=== PATIENT | female | born 1975 | race American Indian/Alaskan Native ===

== ENCOUNTER 2018-02-02 20:03 | Emergency (ER) | payer OTHER ==
[2018-02-02] MEDS ORDERED: NACL 0.9% 1000 ML 1,000 ML IV ONE (20:20)
[2018-02-02 21:10] LABS: Basophils % (Auto) 0.2 % (0.0-1.8); Eosinophils # (Auto) 0.1 K/mm3 (0.0-0.4); Eosinophils % (Auto) 1.1 % (0.0-4.3); Lymphocytes # (Auto) 2.5 K/mm3 (1.2-5.4); Lymphocytes % (Auto) 31.9 % (13.4-35.0); Mean Corpuscular HGB Conc 30 % (30-34); Mean Corpuscular Volume 80 fl (79-97); Monocytes # (Auto) 0.5 K/mm3 (0.0-0.8); Monocytes % (Auto) 5.9 % (0.0-7.3); Platelet Count 412 K/mm3 (140-440); Red Blood Count 4.16 M/mm3 (3.65-5.03); Red Cell Distribution Width 17.4 % (13.2-15.2)
[2018-02-02 21:11] LABS: Hematocrit 33.1 % (30.3-42.9); Hemoglobin 9.9 gm/dl (10.1-14.3); Mean Corpuscular Hemoglobin 24 pg (28-32)
[2018-02-02 21:51] LABS: Alanine Aminotransferase 10 units/L (7-56); BUN/Creatinine Ratio 16; Blood Urea Nitrogen 11 mg/dL (7-17); Calcium 8.7 mg/dL (8.4-10.2); Hemolysis Index 0
[2018-02-02 21:59] LABS: Bilirubin,Urine NEG (Negative); Blood,Urine LG (Negative); Color,Urine Red (Yellow); RBC,Urine > 182.0 /HPF (0.0-6.0); Sperm,Urine 2+ /HPF (NP); Urobilinogen,Urine < 2.0 mg/dL (<2.0); WBC,Urine > 182.0 /HPF (0.0-6.0)
--- NOTE | 2018-02-02 22:10 | Emergency Department Report ---
ED Rash HPI - HPI Chief Complaint: Abdominal Pain Stated Complaint: BIG MASS (WELT) ON ABD EXTREME PAIN Time Seen by Provider: 02/02/18 21:10 Duration: Today Location: Abdomen Suspected Cause: Unknown Rash Symptoms: Yes Itching, No Facial Swelling, No Tongue/Oral Swelling, No Breathing Difficulties, No Choking Sensation, No Wheezing/Dyspnea, No Peeling, No Blistering, No Fever Severity: mild Other History: Ms. Cruz is a 42 yo female with itchy rash RUQ right flank rash. Small rash at first. then became a large welt. No lip swelling. No dyspnea. No wheezing. ED Review of Systems ROS: Stated complaint: BIG MASS (WELT) ON ABD EXTREME PAIN Other details as noted in HPI Constitutional: denies: fever, malaise Respiratory: denies: cough Gastrointestinal: denies: abdominal pain, nausea, vomiting Skin: rash ED Past Medical Hx - Past Medical History Previous Medical History?: No Hx Hypertension: No Hx CVA: No Hx Heart Attack/AMI: No Hx Congestive Heart Failure: No Hx Diabetes: No Hx Deep Vein Thrombosis: No Hx Pulmonary Embolism: No Hx GERD: No Hx Liver Disease: No Hx of Cancer: No Hx Sickle Cell Disease: No Hx Arthritis: No Hx Headaches / Migraines: No Hx Seizures: No Hx Kidney Stones: No Hx Psychiatric Treatment: No Hx Asthma: No Hx COPD: No Hx Tuberculosis: No Hx Dementia: No Hx HIV: No Additional medical history: anemia - Surgical History Past Surgical History?: No Hx Coronary Stent: No Hx Open Heart Surgery: No Hx Pacemaker: No Hx Internal Defibrillator: No Hx Cholecystectomy: No Hx Appendectomy: No Hx Breast Surgery: No - Social History Smoking Status: Never Smoker Substance Use Type: None - Medications Home Medications: Home Medications Medication Instructions Recorded Confirmed Last Taken Type Hydrocortisone 1% [Hydrocortisone 1 applicatio TP TID #1 tube 02/02/18 Unknown Rx 1% CREAM] predniSONE [Deltasone] 3 tab PO QDAY 4 Days #12 tab 02/02/18 Unknown Rx Rash Exam - Exam General: Vital signs noted. No distress. Alert and acting appropriately. HEENT: No Periorbital Edema, No Conjuctival Injection, No Chemosis, No Perioral Edema, No Tongue Edema, No Uvular Edema, No Compromised Airway Lungs: No Wheezes, No Ronchi, No Stridor, No Cough, No Labored Respirations, No Retractions, No Use of Accessory Muscles Skin: Yes Urticarial Rash (10 cm large urticarial rash), Yes Edema ED Course Vital Signs 02/02/18 20:14 Temperature 98.9 F Pulse Rate 91 H Respiratory 20 Rate Blood Pressure 122/81 Blood Pressure 122/81 [Right] O2 Sat by Pulse 100 Oximetry ED Medical Decision Making - Lab Data Result diagrams: 02/02/18 20:26 02/02/18 20:26 Laboratory Results - last 24 hr 02/02/18 02/02/18 02/02/18 20:26 20:26 21:35 WBC 7.8 RBC 4.16 Hgb 9.9 L Hct 33.1 MCV 80 MCH 24 L MCHC 30 RDW 17.4 H Plt Count 412 Lymph % (Auto) 31.9 [place] % (Auto) 5.9 Eos % (Auto) 1.1 Baso % (Auto) 0.2 Lymph # 2.5 [place] # 0.5 Eos # 0.1 Baso # 0.0 Seg Neutrophils % 60.9 Seg Neutrophils # 4.7 Sodium 141 Potassium 3.8 Chloride 106.6 Carbon Dioxide 24 Anion Gap 14 BUN 11 Creatinine 0.7 Estimated GFR > 60 BUN/Creatinine Ratio 16 Glucose 106 H Calcium 8.7 Total Bilirubin < 0.20 AST 17 ALT 10 Alkaline Phosphatase 96 Total Protein 7.0 Albumin 4.0 Albumin/Globulin Ratio 1.3 Urine Color Red Urine Turbidity Cloudy Urine pH 6.0 Ur Specific Roby 1.023 Urine Protein 100 mg/dl Urine Glucose (UA) Neg Urine Ketones Neg Urine Blood Lg Urine Nitrite Neg Urine Bilirubin Neg Urine Urobilinogen < 2.0 Ur Leukocyte Esterase Neg Urine WBC (Auto) > 182.0 H Urine RBC (Auto) > 182.0 Urine WBC Clumps 3+ Urine Yeast (Budding) 3+ Urine Sperm 2+ - Medical Decision Making urticarial rash suspect contact dermatitis rx: prednisone hydrocortisone cream Critical care attestation.: If time is entered above; I have spent that time in minutes in the direct care of this critically ill patient, excluding procedure time. ED Disposition Clinical Impression: Urticarial rash Disposition: [id number] TO HOME OR SELFCARE Is pt being admited?: No Does the pt Need Aspirin: No Condition: Stable Instructions: Urticaria (ED) Prescriptions: Hydrocortisone 1% [Hydrocortisone 1% CREAM] 1 applicatio TP TID #1 tube predniSONE [Deltasone] 3 tab PO QDAY 4 Days #12 tab Time of Disposition: 22:10
[2018-02-02] MEDS ORDERED: DELTASONE PO ONE (22:12)
[2018-02-02 22:39] VITALS: BP 112/67
== END 2018-02-02 22:39 | disposition home or self-care (01) ==
LOC: ED 20:03
DX: L50.8 Other urticaria (principal); Z79.899 Other long term (current) drug therapy
CPT/HCPCS: 36415; 80053; 81001; 85025; 99283; J7512